=== PATIENT | male | born 1975 | race Caucasian/White ===

== ENCOUNTER 2017-02-04 03:22 | Emergency (ER) | payer SELFPAY ==
--- NOTE | ~2017-02-04 | ER ---
PATIENT'S NAME: KARLO [facility] AGE: 41 Y [address] ROOM: [place], [place] [address] LOCATION: [facility] ADMIT DATE: 02/04/2017 ER/Outpatient Report DISCHARGE DATE: 02/04/2017 FAMILY PHYSICIAN: Jatin Elena MD ATTENDING PHYSICIAN: Rubi Carlton HISTORY OF PRESENT ILLNESS: This is a 41-year-old male who presents today with chief complaint of "something got into my system like a trippy fluid, it is into my brain and spinal cord, I didn't eat it or drink it, it is in my brain, I probably need a spinal tap to see what the poison is, little green aliens put poison in my spine and head and now I am dying." When asked to clarify about happened, he endorses that he did not drink it, he did not snort it, he did not swallow it, he did not inject it, but it somehow is in his brain and spinal cord. He reports feeling some nausea. He denies any chest pain, shortness of breath, abdominal pain, diarrhea, urinary symptoms, fevers, or chills. Denies any palpitations or chest pain. When asked to clarify, he also keeps changing his story, he told the outside person that checked him in that this happened two days ago, he told me that it happened 6 hours ago, he told the nurse that it happened about 12 hours ago. When pressed to clarify, he says "okay that I drank it, I think I have a lethal amount of LSD in my system." When asked if he did drugs, he reports he did meth few days ago, but has not done anything since, and he keeps saying that he was poisoned and now he feels like he is dying. The patient walked into the ER, he drove here too. Denies any other complaints at this time, but says he feels like he is dying and that he is being poisoned in his spine and his head and he needs a lumbar puncture. PAST MEDICAL HISTORY: He denies any psychiatric history. He does have history of herniated disks. PAST SURGICAL HISTORY: Lumbar laminectomy, diskectomy, back surgery at L4-L5. SOCIAL HISTORY: He smokes half-a-pack per day and has smoked for 20 years. He reports drug use of marijuana and meth. No other drug use. He denies any suicide or homicidal ideation. He says he is hearing voices and seeing things that are not there. They are not telling him to harm himself or others. Denies over and over that he is not suicidal or homicidal. MEDICATIONS: None. ALLERGIES: NONE. PATIENT'S NAME: KARLO [facility] AGE: 41 Y [address] ROOM: [place], [place] [address] LOCATION: [facility] ADMIT DATE: 02/04/2017 ER/Outpatient Report DISCHARGE DATE: 02/04/2017 FAMILY PHYSICIAN: Jatin Elena MD ATTENDING PHYSICIAN: Rubi Carlton REVIEW OF SYSTEMS: Reviewed by me and negative with the exception of those discussed in HPI. PHYSICAL EXAMINATION: GENERAL: The patient is 6 feet tall, he is 67.7 kilos, blood pressure is 114/66, heart rate is 110, respiratory rate 18, saturating 95% on room air, temperature was 96.7. GENERAL: The patient walked into the ER. He is alert and oriented x4. He has no ataxia, his gait was within normal limits. He is moving all extremities. His GCS is 15. HEART: He has strong pulses. Mildly tachycardic at this time about 102 beats per minute. LUNGS: His lungs sounds are clear. He has no labored breathing, tachypnea, or accessory muscle use. ABDOMEN: Soft, nontender. SKIN: He does not have any ecchymoses. Warm, dry, and intact. NEUROLOGIC: His pupils are equal and reactive to light, they track appropriately. He has no visual acuity deficits. No pronator drift. Strength in bilateral upper extremities is 5/5, lower extremities is 5/5. Intact sensation in bilateral upper and lower extremities. Cranial nerves 2 through 12 are intact. NECK: Supple. He has no tenderness at the neck. He has full range of motion. When he touches his chin to his chest and ranges it from side to side, he does not grimace. EMERGENCY DEPARTMENT COURSE: I continued to ask the patient, I told him based on what he is telling me about little green aliens putting poison in his spine and head and him insisting that he needed a spinal tap, I was slightly confused about what was going on, and he denies any mental health history, but he really comes across as paranoid. He says he does not take any medications, does not have paranoid schizophrenia. Other things he says that is that he feels like he is poisoned and this "trippy fluid" is flooding his brain and spinal cord. I did state that we would be getting a urine drug screen, perhaps that could see what he was possibly "poisoned with." The patient says that he does not know what he is poisoned with but keeps mentioning LSD. I asked him to do a urine drug screen. The patient went to the bathroom and when he came out of the bathroom, he reportedly told the nurse "I can't pee and I don't know what but I feel totally fine now and I would like to go." The patient eloped before I could AMA him or talk to him further about his symptoms. He eloped in stable condition, walked out of the ER. He was able to get into his car and drive off. We did call the police officers because his affect and his behavior were so strange, even though he is not drunk and he has normal gait and the signs his history sounds, he is able to answer questions appropriately and responds PATIENT'S NAME: KARLO [facility] AGE: 41 Y [address] ROOM: [place] [address] LOCATION: [facility] ADMIT DATE: 02/04/2017 ER/Outpatient Report DISCHARGE DATE: 02/04/2017 FAMILY PHYSICIAN: Jatin Elena MD ATTENDING PHYSICIAN: Rubi Carlton appropriately, we asked them to do a welfare check. Police notified the followup with him. IMPRESSION: Paranoia. MD TERESITA FLEMING/ila /[id number] d: 02/04/17 0647 t: 02/05/17 1816, OUTPATIENT REPORT
[~2017-02-04 03:22] MED LIST: ALEVE220 MG PO; PERCOCET 7.5-31 EACH PO; TYLENOL325 MG PO
== END 2017-02-04 03:57 | disposition left against medical advice (07) ==
LOC: GMED 03:22
DX: F22 Delusional disorders (principal)